=== PATIENT | female | born 1970 | race Two or more races ===

== ENCOUNTER → 2024-08-09 | Outpatient (CLI) | payer MEDICAID, SELFPAY ==
--- NOTE | 2024-08-09 15:00 | XR_ITS ---
Examination: Abdomen sonogram, complete Date and time of exam: August 09, 2024 at 1510 hours INDICATIONS: Epigastric pain one year TECHNIQUE: Multiple real-time grayscale transabdominal sonographic images abdomen FINDINGS: Normal gallbladder Normal common bile duct 0.3 cm Pancreatic head 1.9 cm Aorta not enlarged Liver 14.2 cm fatty liver Normal hepatopedal portal venous flow Patent IVC Right kidney 11.0 cm renal cortex 1.6 cm Left kidney 10.2 cm cortex 1.9 cm Mild left renal parenchymal scar formation Spleen 9.0 cm IMPRESSION:: Normal gallbladder Fatty liver
== END | disposition home or self-care (01) ==
LOC: CDIM 14:55
PROVIDERS: PCP Physician Assistant Medical; Referring Provider Physician Assistant Medical; Visit Provider Physician Assistant Medical
DX: K76.0 Fatty (change of) liver, not elsewhere classified (principal)
CPT/HCPCS: 76700